=== PATIENT | female | born 1990 | race Caucasian/White ===

== ENCOUNTER 2020-07-26 18:21 | Emergency (ER) | payer SELFPAY ==
--- NOTE | ~2020-07-26 | XR_ITS ---
XR hand LT min 3V DATE: 07/26/2020 19:53 INDICATION: Bilateral hand swelling and pain TECHNIQUE: 3 views COMPARISON: None FINDINGS: No fracture or dislocation, periosteal reaction or bone destruction. IMPRESSION: No significant abnormality Reviewed, dictated and finalized at location A. IMPRESSION: No significant abnormality
--- NOTE | ~2020-07-26 | XR_ITS ---
XR hand RT min 3V DATE: 07/26/2020 19:53 INDICATION: Bilateral hand pain and swelling TECHNIQUE: 3 views COMPARISON: None FINDINGS: A radiopaque 2.8 mm triangular foreign body is noted in the subcutaneous tissues of the med ial aspect of the hand posterolateral to the distal fifth metacarpal shaft. No fracture, dislocation, periosteal reaction or bone destruction. IMPRESSION: Radiopaque foreign body Reviewed, dictated and finalized at location A. IMPRESSION: Radiopaque foreign body
--- NOTE | ~2020-07-26 | XR_ITS ---
XR chest 2V DATE: 07/26/2020 19:53 INDICATION: Bilateral hand swelling. No injury. TECHNIQUE: PA and lateral views COMPARISON: None FINDINGS: Mild dextroscoliosis of the thoracic spine. Normal heart size. No hilar or mediastinal enlargement. No pulmonary infiltrate or consolidation, ple ural effusion or pulmonary vascular congestion or pneumothorax. IMPRESSION: No active cardiopulmonary disease Reviewed, dictated and finalized at location A.
[2020-07-26 18:24] VITALS: BP 104/68; PULSE 68; RESP 18; TEMP 36.4; O2SAT 97
--- NOTE | 2020-07-26 19:42 | ED.GENADULT ---
HPI - General Adult General Chief complaint: Unspecified Stated complaint: hand swelling Time Seen by Provider: 07/26/20 19:31 Source: patient Mode of arrival: ambulatory Limitations: no limitations History of Present Illness HPI narrative: This is a 30 year old female that presents to the ER for bilateral hand and feet swelling ongoing for years. Reports recently her hands have also started to become painful. Has history of IV drug abuse. Denies fever, chest pain, or shortness of breath. Related Data Home Medications Medication Instructions Recorded Confirmed No Home Medications 07/26/20 07/26/20 Allergies Allergy/AdvReac Type Severity Reaction Status Date / Time No Known Allergies Allergy Verified 07/26/20 18:25 Review of Systems Review of Systems: Narrative: CONSTITUTIONAL: Denies fever CARDIOVASCULAR: Reports edema. Denies chest pain RESPIRATORY: Denies dyspnea. GASTROINTESTINAL: Denies abdominal pain, nausea, vomiting SKIN: Denies rash MUSCULOSKELETAL: Reports joint pain, and myalgia. NEUROLOGIC: Denies numbness, or weakness. All systems reviewed & are unremarkable except as noted in HPI and below PMFSH Social History Social History (Updated 07/26/20 @ 19:45 by Bethanie Villalobos PA-C) Alcohol intake: current Substance use: current Substance use type: amphetamines and opiates Gender identity (if verbalized by the patient): Female Exam Narrative: Exam Narrative: GENERAL: Well-appearing, well-nourished, and in no acute distress. HEAD: Normocephalic, atraumatic. EYES: PERRLA and EOMI. ENT: Nares clear, no rhinorrhea or epistaxis. Mucous membranes moist. Oropharynx without tonsillar hypertrophy exudate or other lesions. Bilateral TMs pearly renae non-bulging NECK: Supple. No adenopathy or masses. N CHEST: Clear to auscultation. No respiratory distress. No wheezes rales or rhonchi HEART: Regular rate and rhythm. No murmur heard. Normal peripheral pulses. ABDOMEN: Soft, nontender, nondistended, normal active bowel sounds. EXTREMITIES: Normal range of motion. Mild non-pitting edema of the bilateral hands and feet. No erythema or warmth. Track williamson noted on the arms bilaterally SKIN: Warm, dry, no rash. NEURO: No focal deficits. Alert and oriented x3. PSYCH: Normal mood and affect Course Vital Signs Vital signs: Vital Signs Temperature 97.5 F L 06/20/21 18:24 Pulse Rate 68 07/26/20 18:24 Respiratory Rate 18 07/26/20 18:24 Blood Pressure 104/68 07/26/20 18:24 Pulse Oximetry 97 07/26/20 18:24 Temperature 97.5 F L 07/26/20 18:24 Pulse Rate 60 07/26/20 22:11 Respiratory Rate 18 07/26/20 22:11 Blood Pressure 118/74 07/26/20 22:11 Pulse Oximetry 99 07/26/20 22:11 Medical Decision Making MDM Narrative Medical decision making narrative: Patient presents the emergency department for edema noted to the hands and feet ongoing for years. She is afebrile and nontoxic-appearing. Vitals are stable. CBC shows normocytic anemia with hemoglobin of 10.8. Metabolic panel without concerning findings. TSH is normal. Chest x-ray without acute findings. Left hand x-rays without acute osseous abnormalities. Right hand x-ray shows a small (2.8mm) radiopaque foreign body. There is no erythema of this hand. No recent lacerations. Suspect this is from a previous older injury. BNP is not elevated. Patient and family updated on case findings. Edema likely in part due to patient's history of IV drug abuse. Patient and family updated on case findings. She is stable and felt appropriate for further outpatient evaluation. She is to follow-up with primary care doctor. She was given warnings to return to the ER Vital Signs Vital Signs: Vital Signs Temperature 97.5 F L 07/26/20 18:24 Pulse Rate 68 07/26/20 18:24 Respiratory Rate 18 07/26/20 18:24 Blood Pressure 104/68 07/26/20 18:24 Pulse Oximetry 97 07/26/20 18:24 Temperature 97.5 F L 07/26/20 18:24 Pulse Rat
[2020-07-26 20:36] LABS: Basophils Percent Auto 0.5 % (0.2-1.2); Eosinophils Absolute Auto 0.1 K/mm3 (0-0.3); Hematocrit 35.2 % (37.0-47.0); Hemoglobin 10.8 g/dL (12.0-15.0); Immature Granulocyte Absolute 0.02 K/mm3 (0.00-0.031); Immature Granulocyte Percent A 0.5 % (0-0.5); Lymphocytes Absolute Auto 1.48 K/mm3 (0.9-3.2); Lymphocytes Percent Auto 36.1 % (18.3-44.2); Mean Corpuscular HGB Conc 30.7 g/dl (32-36); Mean Corpuscular Hemoglobin 27.6 pg (26-34); Mean Platelet Volume 10.5 fl (7.4-10.4); Monocytes Absolute Auto 0.4 K/mm3 (0.1-0.6); Monocytes Percent Auto 8.8 % (2.6-8.5); Neutrophils Absolute Auto 2.1 K/mm3 (1.3-6.7); Neutrophils Percent Auto 52.1 % (45.5-73.1); Platelet Count Result 124 k/mm3 (150-375); Red Blood Count 3.91 M/mm3 (4.2-5.4); Red Cell Distribution Width 13.4 % (11.5-14.5); White Blood Count 4.1 K/mm3 (4.5-10.0)
[2020-07-26 20:45] LABS: INR 1.1; Prothrombin Time 14.5 Seconds (11.1-14.7)
[2020-07-26 20:48] LABS: Alanine Aminotransferase 31 U/L (4-35); Albumin Level 3.7 g/dL (3.5-5.1); Alkaline Phosphatase 56 U/L (38-126); Anion Gap 8 mmol/L (8-16); Aspartate Amino Transferase 53 U/L (14-36); Bilirubin,Total 0.3 mg/dL (0.2-1.3); Blood Urea Nitrogen 16 mg/dL (7-17); Calcium 9.1 mg/dL (8.4-10.2); Carbon Dioxide 27 mmol/L (22-30); Chloride 107 mmol/L (98-107); Estimated CRCL calculation 89 ml/min; Estimated Glomerular Filt Rate > 60; Glucose 102 mg/dL (65-105); Potassium 4.3 mmol/L (3.4-5.0); Sodium 142 mmol/L (137-145)
[2020-07-26 20:57] LABS: NT Pro B Type Natriuretic Pept 100 pg/mL (5-100)
[2020-07-26 22:11] VITALS: BP 118/74; PULSE 60; RESP 18; O2SAT 99
[2020-07-26 22:50] VITALS: BP 120/74; PULSE 70; RESP 18; O2SAT 99
== END 2020-07-26 22:51 | disposition home or self-care (01) ==
PROVIDERS: Physician Assistant; Emergency Provider Emergency Medicine
DX: R60.9 Edema, unspecified (principal)
CPT/HCPCS: 36415; 71046; 73130; 80053; 83880; 84443; 85025; 85610; 85730; 99284